=== PATIENT | male | born 1990 | race African-American/Black ===

== ENCOUNTER 2020-11-10 00:09 | Outpatient (CLI) | payer OTHER ==
[~2020-11-10 00:09] MED LIST: PREVACID30 MG PO
== END 2020-11-10 15:00 | disposition home or self-care (01) ==
LOC: LAB 00:09
PROVIDERS: ATTEND Obstetrics & Gynecology
DX: Z20.818 Contact with and (suspected) exposure to other bacterial communicable diseases (principal); Z20.828 Contact with and (suspected) exposure to other viral communicable diseases

== ENCOUNTER 2021-03-25 14:33 | Emergency (ER) | payer OTHER ==
[~2021-03-25] VITALS: Ht 185.4 cm; Wt 81.6 kg
== END 2021-03-25 19:45 | disposition home or self-care (01) ==
LOC: ER 14:33
DX: U07.1 COVID-19 (principal); B34.9 Viral infection, unspecified